=== PATIENT | female | born 1950 | race Caucasian/White ===

== ENCOUNTER → 2019-01-30 | Outpatient (CLI) | payer MEDICARE ==
[~2019-01-30] MED LIST: ALLO300T80 PO; CYCL-259 PO; HYDR-3241 PO; LIDOCAINE-MPF 1%, 5ML ONE; OMNIPAQUE 350 MG/ML, 100ML BOTTLE ONE; ONDA4TAB13 SL; ONDANSETRON PO
== END | disposition home or self-care (01) ==
LOC: RAD 11:32
PROVIDERS: ATTEND Otolaryngology
DX: E04.1 Nontoxic single thyroid nodule (principal); Z85.828 Personal history of other malignant neoplasm of skin
CPT/HCPCS: 10005; 10006; 36415; 70491; 82565; 88173; Q9967

== ENCOUNTER 2019-03-03 12:57 | Outpatient (CLI) | payer MEDICARE | END 2019-03-03 23:59 | disposition home or self-care (01) | LOC: PETCFH 12:57 | PROVIDERS: ATTEND Otolaryngology | DX: C78.02 Secondary malignant neoplasm of left lung (principal); C78.1 Secondary malignant neoplasm of mediastinum; C78.2 Secondary malignant neoplasm of pleura; C79.89 Secondary malignant neoplasm of other specified sites; D37.030 Neoplasm of uncertain behavior of the parotid salivary glands; E07.89 Other specified disorders of thyroid; R91.8 Other nonspecific abnormal finding of lung field; J90 Pleural effusion, not elsewhere classified; R59.0 Localized enlarged lymph nodes | CPT/HCPCS: 78815; A9552 ==

== ENCOUNTER 2021-03-14 15:48 | Inpatient (IN) | payer MEDICARE ==
[~2021-03-14] VITALS: Ht 162.6 cm; Wt 60.8 kg
[~2021-03-14 15:48] MED LIST changes: -CYCL-259 PO; +CYCL10TA2 PO; -LIDOCAINE-MPF 1%, 5ML ONE; -OMNIPAQUE 350 MG/ML, 100ML BOTTLE ONE
--- NOTE | 2021-03-14 16:11 | NUR ---
PT SENT FROM PCP TO GET PLATELETS TESTED. HX OF LOW PLATELETS. BRUSING NOTED BILATERAL UE.
[2021-03-14] MEDS ORDERED: PRED1TAB19 PO (16:15)
[2021-03-14] MEDS ORDERED: SODIUM CHLORIDE FLUSH 10ML SYR IVF ONE (17:00)
--- NOTE | 2021-03-14 17:03 | NUR ---
REPORT TO CLINT MURPHY TO ASSUME PRIMARY CARE OF PT.
--- NOTE | 2021-03-14 17:21 | NUR ---
recieved report from navin robert.
[2021-03-14] MEDS ORDERED: methylPREDNISolone SOD SUCC 125 MG/2 ML IVPush ONE (17:30)
[2021-03-14 17:35] LABS: BASOPHILS % (AUTO) 1 % (0-1); EOSINOPHILS % (AUTO) 0 % (1-7); LYMPHOCYTES % (AUTO) 10 % (22-44); MEAN CORPUSCULAR HGB CONC 34.1 g/dL (32.4-35.8); MEAN PLATELET VOLUME 10.4 fL (7.4-10.4); MONOCYTES % (AUTO) 9 % (2-9); NEUTROPHILS % (AUTO) 80 % (42-75); RED BLOOD COUNT 2.97 x10^6/uL (3.82-5.3); RED CELL DISTRIBUTION WIDTH 19.4 % (9.6-15.2)
[2021-03-14 17:43] LABS: ALBUMIN 2.3 g/dL (3.4-5.0); ANION GAP 4 mmol/L (5-15); CALCIUM 9.5 mg/dL (8.5-10.1); CHLORIDE 105 mmol/L (98-107); CREATININE 1.11 mg/dL (0.55-1.02)
[2021-03-14 17:49] LABS: INTERNATIONAL NORMALIZED RATIO 1.04 (0.93-1.1); PROTHROMBIN TIME 11.1 Seconds (9.6-11.5)
[2021-03-14] MEDS ORDERED: methylPREDNISolone SOD SUCC 125 MG/2 ML ONE (17:49)
[2021-03-14 18:01] LABS: PLATELET COUNT 8 x10^3/uL (130-400)
--- NOTE | 2021-03-14 18:02 | NUR ---
PT DAUGHTER GAVE PT A SALAD WITH RANCH. SPOKE TO CEM AND ROMY VALDOVINOS STATED THAT WAS OKAY. PT RESTING IN BED NADN. VSS. WCTM
[2021-03-14 18:05] LABS: <PLATELET ESTIMATE> DECREASED; <PLT MORPHOLOGY> QNS FOR PLT MORPH; ANISOCYTOSIS 1+; MICROCYTOSIS 1+
[2021-03-14] MEDS ORDERED: SODIUM CHLORIDE FLUSH 10ML SYR IVF PRN (19:00)
--- NOTE | 2021-03-14 19:27 | NUR ---
Vee sharpe in [facility] - 03/14/21 at 1928 by O[place] GAVE REPORT TO LATA JARAMILLO
[2021-03-14] MEDS ORDERED: ONDANSETRON 2MG/ML, 2ML IVPush PRN (19:30)
[2021-03-14] MEDS ORDERED: LABETALOL 5MG/ML, 20ML IVPush PRN (19:30)
[2021-03-14] MEDS ORDERED: MELATONIN 5 MG TABLET PO PRN (19:30)
[2021-03-14] MEDS ORDERED: ACETAMINOPHEN 325 MG TABLET PO PRN (19:30)
[2021-03-14] MEDS ORDERED: IMMUNE GLOB (GAMUNEX) 10GM/100ML IVPB ONE (19:30)
[2021-03-14] MEDS ORDERED: OXYcodone IR 5MG TABLET PO PRN (19:30)
[2021-03-14 19:31] VITALS: BP 92/59
--- NOTE | 2021-03-14 19:33 | NUR ---
GAVE REPORT TO LATA JARAMILLO
[2021-03-14 19:47] VITALS: BP 96/51
--- NOTE | 2021-03-14 19:51 | NUR ---
PT PLATELET INFUSION STARTED 15 MINUTES AGO. PT TOLERATING QWELL, NO REACTIONS NOTED. PT STARTED AT 60ML/HR AND INCREASED TO 150ML/HR NADN. VSS. JOCY AWAITING TO SEND TO ONCOLOGY FLOOR
[2021-03-14 20:18] VITALS: BP 91/48
[2021-03-14 20:22] VITALS: BP 91/48
[2021-03-14] MEDS ORDERED: IMMUN GLOB IV ONE (21:00)
[2021-03-14 21:52] VITALS: BP 87/51
[2021-03-14 21:55] VITALS: BP 93/57
[2021-03-14] MEDS: methylPREDNISolone SOD SUCC 40 MG/ML IVPush SCH (22:26)
[2021-03-14] MEDS: FAMOTIDINE 20 MG TABLET PO SCH (22:26)
[2021-03-15] VITALS (8 sets, daily range): BP systolic 88–108; BP diastolic 48–66
[2021-03-15] MEDS: methylPREDNISolone SOD SUCC 40 MG/ML IVPush SCH ×4 (01:51→20:22)
[2021-03-15 05:05] LABS: BASOPHILS % (AUTO) 0 % (0-1); EOSINOPHILS % (AUTO) 0 % (1-7); LYMPHOCYTES % (AUTO) 8 % (22-44); MEAN CORPUSCULAR HEMOGLOBIN 30.1 pg (27.0-34.8); MEAN CORPUSCULAR HGB CONC 34.1 g/dL (32.4-35.8); MEAN PLATELET VOLUME 10.4 fL (7.4-10.4); MONOCYTES % (AUTO) 9 % (2-9); NEUTROPHILS % (AUTO) 83 % (42-75); RED BLOOD COUNT 2.62 x10^6/uL (3.82-5.3)
[2021-03-15 05:10] LABS: ANION GAP 6 mmol/L (5-15); CALCIUM 8.6 mg/dL (8.5-10.1); CHLORIDE 105 mmol/L (98-107); CREATININE 1.02 mg/dL (0.55-1.02)
[2021-03-15 05:28] LABS: PLATELET COUNT 4 x10^3/uL (130-400)
[2021-03-15] MEDS: FAMOTIDINE 20 MG TABLET PO SCH (08:05)
[2021-03-15] MEDS ORDERED: FAMOTIDINE 20 MG/2 ML IVPush ONE (15:00)
[2021-03-15] MEDS ORDERED: DIPHENHYDRAMINE 50 MG/ML, 1ML IVPush ONE (15:00)
[2021-03-15] MEDS ORDERED: DEXAMETHASONE 10 MG in SODIUM CHLORIDE 0.9% 50 ML IV ONE (15:00)
[2021-03-15] MEDS ORDERED: ACETAMINOPHEN 325 MG TABLET PO ONE (15:00)
[2021-03-15] MEDS ORDERED: SODIUM CHLORIDE 0.9% IV ONE (15:30)
[2021-03-15] MEDS ORDERED: RITUXIMAB IV ONE (15:30)
[2021-03-15 16:45] LABS: EOSINOPHILS % (AUTO) 0 % (1-7); RED BLOOD COUNT 2.98 x10^6/uL (3.82-5.3); RED CELL DISTRIBUTION WIDTH 19.5 % (9.6-15.2)
[2021-03-15 16:47] LABS: BASOPHILS % (AUTO) 0 % (0-1); LYMPHOCYTES % (AUTO) 5 % (22-44); MEAN CORPUSCULAR HEMOGLOBIN 30.2 pg (27.0-34.8); MEAN CORPUSCULAR HGB CONC 33.7 g/dL (32.4-35.8); MEAN PLATELET VOLUME 7.7 fL (7.4-10.4); MONOCYTES % (AUTO) 7 % (2-9); NEUTROPHILS % (AUTO) 87 % (42-75)
[2021-03-15 17:08] LABS: PLATELET COUNT 35 x10^3/uL (130-400)
[2021-03-16] VITALS (8 sets, daily range): BP systolic 96–130; BP diastolic 59–72
[2021-03-16] MEDS: methylPREDNISolone SOD SUCC 40 MG/ML IVPush SCH ×4 (02:17→20:24)
[2021-03-16 05:00] LABS: MEAN CORPUSCULAR HEMOGLOBIN 30.6 pg (27.0-34.8); MEAN CORPUSCULAR HGB CONC 34.1 g/dL (32.4-35.8); MEAN PLATELET VOLUME 9.7 fL (7.4-10.4); RED BLOOD COUNT 2.33 x10^6/uL (3.82-5.3); RED CELL DISTRIBUTION WIDTH 19.7 % (9.6-15.2)
[2021-03-16 05:05] LABS: CHLORIDE 111 mmol/L (98-107)
[2021-03-16 05:07] LABS: PLATELET COUNT 3 x10^3/uL (130-400)
[2021-03-16 05:18] LABS: ALANINE AMINOTRANSFERASE 19 U/L (12-78); ALKALINE PHOSPHATASE 86 U/L (45-117); BILIRUBIN,TOTAL 1.1 mg/dL (0.2-1.0); CREATININE 0.96 mg/dL (0.55-1.02); TOTAL PROTEIN 7.1 g/dL (6.4-8.2)
[2021-03-16 05:21] LABS: ALBUMIN 1.7 g/dL (3.4-5.0); ANION GAP 6 mmol/L (5-15); CALCIUM 8.7 mg/dL (8.5-10.1)
[2021-03-16 06:42] LABS: ANISOCYTOSIS 1+; LYMPH#(MANUAL) 0.32 x10^3/uL (1-3.4); LYMPHS% (MANUAL) 4 % (22-44); MONOS#(MANUAL) 0.16 x10^3/uL (0.3-2.7); MONOS% (MANUAL) 2 % (2-9); SEG#(MANUAL) 7.61 x10^3/uL (1.8-6.8); SEGS% (MANUAL) 94 % (42-75)
[2021-03-16 06:43] LABS: POLYCHROMASIA 1+
[2021-03-16 06:44] LABS: <PLATELET ESTIMATE> DECREASED; <PLT MORPHOLOGY> QNS FOR PLT MORPH
[2021-03-16] MEDS ORDERED: IMMUNE GLOB (GAMUNEX) 10GM/100ML IVPB ONE (08:30)
[2021-03-16] MEDS ORDERED: FAMOTIDINE 20 MG TABLET PO SCH (09:00)
[2021-03-16] MEDS ORDERED: IMMUNE GLOBULIN IV ONE (10:00)
[2021-03-17] MEDS: methylPREDNISolone SOD SUCC 40 MG/ML IVPush SCH ×4 (01:40→19:37)
[2021-03-17 01:43] VITALS: BP 103/63
[2021-03-17 07:51] VITALS: BP 110/69
[2021-03-17 08:26] LABS: BASOPHILS % (AUTO) 0 % (0-1); EOSINOPHILS % (AUTO) 0 % (1-7); LYMPHOCYTES % (AUTO) 4 % (22-44); MEAN CORPUSCULAR HEMOGLOBIN 30.3 pg (27.0-34.8); MEAN CORPUSCULAR HGB CONC 33.4 g/dL (32.4-35.8); MEAN PLATELET VOLUME 10.6 fL (7.4-10.4); MONOCYTES % (AUTO) 7 % (2-9); NEUTROPHILS % (AUTO) 90 % (42-75); RED BLOOD COUNT 2.75 x10^6/uL (3.82-5.3); RED CELL DISTRIBUTION WIDTH 19.9 % (9.6-15.2)
[2021-03-17 09:03] LABS: PLATELET COUNT 25 x10^3/uL (130-400)
[2021-03-17 12:35] VITALS: BP 111/64
[2021-03-17 19:05] VITALS: BP 119/73
[2021-03-18] VITALS (7 sets, daily range): BP systolic 103–118; BP diastolic 63–68
[2021-03-18] MEDS: methylPREDNISolone SOD SUCC 40 MG/ML IVPush SCH ×2 (01:43→07:32)
[2021-03-18 06:17] LABS: BASOPHILS % (AUTO) 0 % (0-1); EOSINOPHILS % (AUTO) 0 % (1-7); LYMPHOCYTES % (AUTO) 3 % (22-44); MEAN CORPUSCULAR HEMOGLOBIN 30.6 pg (27.0-34.8); MEAN CORPUSCULAR HGB CONC 33.7 g/dL (32.4-35.8); MEAN PLATELET VOLUME 10.1 fL (7.4-10.4); MONOCYTES % (AUTO) 8 % (2-9); NEUTROPHILS % (AUTO) 89 % (42-75); RED BLOOD COUNT 2.59 x10^6/uL (3.82-5.3); RED CELL DISTRIBUTION WIDTH 20.5 % (9.6-15.2)
[2021-03-18 06:52] LABS: PLATELET COUNT 9 x10^3/uL (130-400)
[2021-03-18 15:38] LABS: BASOPHILS % (AUTO) 0 % (0-1); EOSINOPHILS % (AUTO) 0 % (1-7); LYMPHOCYTES % (AUTO) 3 % (22-44); MEAN CORPUSCULAR HEMOGLOBIN 30.4 pg (27.0-34.8); MEAN CORPUSCULAR HGB CONC 33.5 g/dL (32.4-35.8); MEAN PLATELET VOLUME 9.2 fL (7.4-10.4); MONOCYTES % (AUTO) 8 % (2-9); NEUTROPHILS % (AUTO) 89 % (42-75); RED BLOOD COUNT 2.92 x10^6/uL (3.82-5.3); RED CELL DISTRIBUTION WIDTH 20.7 % (9.6-15.2)
[2021-03-18] MEDS: OMEPRAZOLE 20 MG CAPSULE.DR PO SCH (15:50)
[2021-03-18] MEDS: POLYETHYLENE GLYCOL 17 GM PACKET PO PRN (15:50)
[2021-03-18 16:03] LABS: PLATELET COUNT 43 x10^3/uL (130-400)
[2021-03-18 18:25] LABS: HYPOCHROMIA 1+; MICROCYTOSIS 1+; POLYCHROMASIA 1+
[2021-03-18 18:26] LABS: <PLATELET ESTIMATE> DECREASED; <PLT MORPHOLOGY> NORMAL PLT MORPH
[2021-03-19 03:29] VITALS: BP 104/62
[2021-03-19 04:32] LABS: BASOPHILS % (AUTO) 1 % (0-1); EOSINOPHILS % (AUTO) 0 % (1-7); LYMPHOCYTES % (AUTO) 5 % (22-44); MEAN CORPUSCULAR HEMOGLOBIN 30.5 pg (27.0-34.8); MEAN CORPUSCULAR HGB CONC 33.4 g/dL (32.4-35.8); MEAN PLATELET VOLUME 9.3 fL (7.4-10.4); MONOCYTES % (AUTO) 11 % (2-9); NEUTROPHILS % (AUTO) 83 % (42-75); RED BLOOD COUNT 2.57 x10^6/uL (3.82-5.3); RED CELL DISTRIBUTION WIDTH 21.7 % (9.6-15.2)
[2021-03-19 04:39] LABS: PLATELET COUNT 13 x10^3/uL (130-400)
[2021-03-19 04:40] LABS: ALBUMIN 1.7 g/dL (3.4-5.0); ANION GAP 6 mmol/L (5-15); CALCIUM 9.1 mg/dL (8.5-10.1); CHLORIDE 105 mmol/L (98-107)
[2021-03-19 04:43] LABS: ALANINE AMINOTRANSFERASE 20 U/L (12-78); ALKALINE PHOSPHATASE 80 U/L (45-117); BILIRUBIN,TOTAL 1.5 mg/dL (0.2-1.0); CREATININE 0.81 mg/dL (0.55-1.02); TOTAL PROTEIN 7.4 g/dL (6.4-8.2)
[2021-03-19] MEDS: OMEPRAZOLE 20 MG CAPSULE.DR PO SCH ×2 (05:55→15:37)
[2021-03-19 06:46] VITALS: BP 104/54
[2021-03-19] MEDS ORDERED: PANTOPRAZOLE 40MG TABLET PO SCH (09:00)
[2021-03-19 12:20] VITALS: BP 105/67
[2021-03-19] MEDS: POLYETHYLENE GLYCOL 17 GM PACKET PO PRN (14:26)
[2021-03-19] MEDS ORDERED: DOCUSATE 100 MG CAPSULE PO PRN (15:00)
[2021-03-19 19:25] VITALS: BP 94/59
[2021-03-19] MEDS: SENNOSIDES 8.6 MG TABLET PO SCH (20:46)
[2021-03-20] VITALS (7 sets, daily range): BP systolic 84–106; BP diastolic 50–71
[2021-03-20 05:10] LABS: BASOPHILS % (AUTO) 0 % (0-1); EOSINOPHILS % (AUTO) 0 % (1-7); LYMPHOCYTES % (AUTO) 4 % (22-44); MEAN CORPUSCULAR HEMOGLOBIN 30.6 pg (27.0-34.8); MEAN CORPUSCULAR HGB CONC 33.4 g/dL (32.4-35.8); MEAN PLATELET VOLUME 10.8 fL (7.4-10.4); MONOCYTES % (AUTO) 13 % (2-9); NEUTROPHILS % (AUTO) 82 % (42-75); RED BLOOD COUNT 2.56 x10^6/uL (3.82-5.3); RED CELL DISTRIBUTION WIDTH 21.8 % (9.6-15.2)
[2021-03-20 05:44] LABS: PLATELET COUNT 4 x10^3/uL (130-400)
[2021-03-20 05:46] LABS: <PLATELET ESTIMATE> DECREASED; <PLT MORPHOLOGY> QNS FOR PLT MORPH; ANISOCYTOSIS 1+; POLYCHROMASIA 1+
[2021-03-20] MEDS: OMEPRAZOLE 20 MG CAPSULE.DR PO SCH ×2 (06:05→16:26)
[2021-03-20] MEDS: SENNOSIDES 8.6 MG TABLET PO SCH ×2 (09:11→20:42)
[2021-03-21] VITALS (7 sets, daily range): BP systolic 92–110; BP diastolic 54–70
[2021-03-21 05:02] LABS: BASOPHILS % (AUTO) 0 % (0-1); EOSINOPHILS % (AUTO) 0 % (1-7); LYMPHOCYTES % (AUTO) 5 % (22-44); MEAN CORPUSCULAR HEMOGLOBIN 30.7 pg (27.0-34.8); MEAN CORPUSCULAR HGB CONC 33.5 g/dL (32.4-35.8); MEAN PLATELET VOLUME 10.3 fL (7.4-10.4); MONOCYTES % (AUTO) 13 % (2-9); NEUTROPHILS % (AUTO) 82 % (42-75); RED BLOOD COUNT 2.39 x10^6/uL (3.82-5.3); RED CELL DISTRIBUTION WIDTH 21.9 % (9.6-15.2)
[2021-03-21 05:26] LABS: PLATELET COUNT 3 x10^3/uL (130-400)
[2021-03-21] MEDS: OMEPRAZOLE 20 MG CAPSULE.DR PO SCH ×2 (06:01→16:14)
[2021-03-21] MEDS: SENNOSIDES 8.6 MG TABLET PO SCH ×2 (08:26→19:40)
[2021-03-21] MEDS ORDERED: ROMIPLOSTIM 250 MCG SQ ONE (16:30)
[2021-03-22] VITALS (7 sets, daily range): BP systolic 94–137; BP diastolic 55–68
[2021-03-22] MEDS: OMEPRAZOLE 20 MG CAPSULE.DR PO SCH ×2 (05:04→18:29)
[2021-03-22 05:27] LABS: BASOPHILS % (AUTO) 0 % (0-1); EOSINOPHILS % (AUTO) 0 % (1-7); LYMPHOCYTES % (AUTO) 6 % (22-44); MEAN CORPUSCULAR HEMOGLOBIN 31.2 pg (27.0-34.8); MEAN CORPUSCULAR HGB CONC 33.5 g/dL (32.4-35.8); MEAN PLATELET VOLUME 12.5 fL (7.4-10.4); MONOCYTES % (AUTO) 15 % (2-9); NEUTROPHILS % (AUTO) 78 % (42-75); RED CELL DISTRIBUTION WIDTH 23.3 % (9.6-15.2)
[2021-03-22 05:38] LABS: PLATELET COUNT 2 x10^3/uL (130-400)
[2021-03-22] MEDS ORDERED: ACETAMINOPHEN 325 MG TABLET PO ONE ×3 (06:00→10:00)
[2021-03-22] MEDS ORDERED: DIPHENHYDRAMINE 50 MG/ML, 1ML IVPush ONE ×3 (06:00→10:00)
[2021-03-22] MEDS ORDERED: DEXAMETHASONE 4 MG/ML, 1ML IV ONE ×2 (08:30→10:00)
[2021-03-22] MEDS ORDERED: FAMOTIDINE 20 MG/2 ML IVPush ONE ×2 (08:30→10:00)
[2021-03-22] MEDS ORDERED: SODIUM CHLORIDE 0.9% IV ONE ×2 (09:00→11:00)
[2021-03-22] MEDS ORDERED: RITUXIMAB IV ONE ×2 (09:00→11:00)
[2021-03-22] MEDS: SENNOSIDES 8.6 MG TABLET PO SCH ×2 (11:07→20:44)
[2021-03-22] MEDS ORDERED: IMMUNE GLOB (GAMUNEX) 10GM/100ML IVPB ONE (14:00)
[2021-03-22] MEDS ORDERED: IMMUNE GLOBULIN 60 GM in VIAL 0 EACH IV ONE (14:30)
[2021-03-23] VITALS (9 sets, daily range): BP systolic 98–121; BP diastolic 59–69
[2021-03-23 05:07] LABS: BASOPHILS % (AUTO) 0 % (0-1); EOSINOPHILS % (AUTO) 0 % (1-7); LYMPHOCYTES % (AUTO) 4 % (22-44); MEAN CORPUSCULAR HEMOGLOBIN 31.4 pg (27.0-34.8); MEAN CORPUSCULAR HGB CONC 33.4 g/dL (32.4-35.8); MONOCYTES % (AUTO) 13 % (2-9); NEUTROPHILS % (AUTO) 83 % (42-75); RED BLOOD COUNT 2.18 x10^6/uL (3.82-5.3); RED CELL DISTRIBUTION WIDTH 23.5 % (9.6-15.2)
[2021-03-23 05:14] LABS: PLATELET COUNT 6 x10^3/uL (130-400)
[2021-03-23 05:19] LABS: ANION GAP 6 mmol/L (5-15); CHLORIDE 107 mmol/L (98-107); CREATININE 0.84 mg/dL (0.55-1.02)
[2021-03-23] MEDS: OMEPRAZOLE 20 MG CAPSULE.DR PO SCH ×2 (06:11→16:55)
[2021-03-23] MEDS: SENNOSIDES 8.6 MG TABLET PO SCH ×2 (08:09→21:17)
[2021-03-23] MEDS ORDERED: ACETAMINOPHEN 325 MG TABLET PO ONE (08:30)
[2021-03-23] MEDS ORDERED: DIPHENHYDRAMINE 50 MG/ML, 1ML IVPush ONE (08:30)
[2021-03-23 17:38] LABS: ANA SCREEN NEGATIVE (Negative)
[2021-03-24 01:35] VITALS: BP 104/67
[2021-03-24 05:39] LABS: BASOPHILS % (AUTO) 0 % (0-1); EOSINOPHILS % (AUTO) 0 % (1-7)
[2021-03-24 05:42] LABS: LYMPHOCYTES % (AUTO) 4 % (22-44); MEAN CORPUSCULAR HGB CONC 34.2 g/dL (32.4-35.8); MONOCYTES % (AUTO) 9 % (2-9); NEUTROPHILS % (AUTO) 87 % (42-75); RED BLOOD COUNT 3.22 x10^6/uL (3.82-5.3); RED CELL DISTRIBUTION WIDTH 24.1 % (9.6-15.2)
[2021-03-24 05:44] LABS: CHLORIDE 105 mmol/L (98-107)
[2021-03-24 05:49] LABS: ANION GAP 6 mmol/L (5-15); CALCIUM 9.2 mg/dL (8.5-10.1); CREATININE 0.85 mg/dL (0.55-1.02)
[2021-03-24] MEDS: OMEPRAZOLE 20 MG CAPSULE.DR PO SCH ×2 (05:57→15:52)
[2021-03-24 06:16] LABS: PLATELET COUNT 26 x10^3/uL (130-400)
[2021-03-24 08:12] VITALS: BP 107/67
[2021-03-24] MEDS: SENNOSIDES 8.6 MG TABLET PO SCH ×2 (08:40→21:04)
[2021-03-24 14:00] VITALS: BP 102/67
[2021-03-24 19:19] VITALS: BP 100/63
[2021-03-25] VITALS (8 sets, daily range): BP systolic 80–105; BP diastolic 52–64
[2021-03-25 04:57] LABS: BASOPHILS % (AUTO) 0 % (0-1); EOSINOPHILS % (AUTO) 0 % (1-7); LYMPHOCYTES % (AUTO) 5 % (22-44); MEAN CORPUSCULAR HEMOGLOBIN 31.4 pg (27.0-34.8); MEAN CORPUSCULAR HGB CONC 34.2 g/dL (32.4-35.8); MEAN PLATELET VOLUME 10.5 fL (7.4-10.4); MONOCYTES % (AUTO) 9 % (2-9); NEUTROPHILS % (AUTO) 86 % (42-75); RED BLOOD COUNT 2.85 x10^6/uL (3.82-5.3); RED CELL DISTRIBUTION WIDTH 23.9 % (9.6-15.2)
[2021-03-25 05:52] LABS: PLATELET COUNT 6 x10^3/uL (130-400)
[2021-03-25] MEDS: OMEPRAZOLE 20 MG CAPSULE.DR PO SCH ×2 (05:56→15:34)
[2021-03-25] MEDS: SENNOSIDES 8.6 MG TABLET PO SCH ×2 (07:38→19:58)
[2021-03-26] VITALS (9 sets, daily range): BP systolic 83–109; BP diastolic 53–69
[2021-03-26 05:33] LABS: BASOPHILS % (AUTO) 1 % (0-1); EOSINOPHILS % (AUTO) 0 % (1-7); LYMPHOCYTES % (AUTO) 4 % (22-44); MEAN CORPUSCULAR HEMOGLOBIN 31.3 pg (27.0-34.8); MEAN CORPUSCULAR HGB CONC 34.3 g/dL (32.4-35.8); MEAN PLATELET VOLUME 10.5 fL (7.4-10.4); MONOCYTES % (AUTO) 7 % (2-9); NEUTROPHILS % (AUTO) 88 % (42-75); RED BLOOD COUNT 2.83 x10^6/uL (3.82-5.3); RED CELL DISTRIBUTION WIDTH 23.7 % (9.6-15.2)
[2021-03-26 05:45] LABS: PLATELET COUNT 5 x10^3/uL (130-400)
[2021-03-26] MEDS: OMEPRAZOLE 20 MG CAPSULE.DR PO SCH ×2 (06:07→16:26)
[2021-03-26] MEDS: SENNOSIDES 8.6 MG TABLET PO SCH ×2 (08:15→19:53)
[2021-03-26] MEDS: DIPHENHYDRAMINE 50 MG/ML, 1ML IVPush PRN ×2 (12:02→21:20)
[2021-03-26] MEDS ORDERED: SODIUM CHLORIDE NASAL SPRAY 45ML BOTTLE NAS PRN ×2 (15:30→18:30)
[2021-03-26] MEDS: OXYMETAZOLINE NASAL SPRAY 0.05%, 15ML NAS PRN (16:31)
[2021-03-26] MEDS: ACETAMINOPHEN 325 MG TABLET PO PRN (21:20)
[2021-03-27] VITALS (8 sets, daily range): BP systolic 92–119; BP diastolic 54–68
[2021-03-27 05:29] LABS: BASOPHILS % (AUTO) 0 % (0-1); EOSINOPHILS % (AUTO) 0 % (1-7); LYMPHOCYTES % (AUTO) 3 % (22-44); MEAN CORPUSCULAR HEMOGLOBIN 31.4 pg (27.0-34.8); MEAN CORPUSCULAR HGB CONC 34.2 g/dL (32.4-35.8); MEAN PLATELET VOLUME 10.4 fL (7.4-10.4); MONOCYTES % (AUTO) 6 % (2-9); NEUTROPHILS % (AUTO) 90 % (42-75); RED BLOOD COUNT 2.62 x10^6/uL (3.82-5.3)
[2021-03-27 05:32] LABS: PLATELET COUNT 6 x10^3/uL (130-400)
[2021-03-27 05:37] LABS: ANION GAP 5 mmol/L (5-15); CALCIUM 9.6 mg/dL (8.5-10.1); CHLORIDE 107 mmol/L (98-107)
[2021-03-27 05:39] LABS: CREATININE 0.85 mg/dL (0.55-1.02)
[2021-03-27] MEDS: OMEPRAZOLE 20 MG CAPSULE.DR PO SCH ×2 (05:57→16:28)
[2021-03-27] MEDS: OXYMETAZOLINE NASAL SPRAY 0.05%, 15ML NAS PRN (07:28)
[2021-03-27] MEDS: SENNOSIDES 8.6 MG TABLET PO SCH ×2 (08:03→20:05)
[2021-03-27] MEDS: DIPHENHYDRAMINE 50 MG/ML, 1ML IVPush PRN (08:36)
[2021-03-28] VITALS (7 sets, daily range): BP systolic 90–117; BP diastolic 55–76
[2021-03-28 04:42] LABS: BASOPHILS % (AUTO) 0 % (0-1); EOSINOPHILS % (AUTO) 0 % (1-7); LYMPHOCYTES % (AUTO) 5 % (22-44); MEAN CORPUSCULAR HEMOGLOBIN 31.2 pg (27.0-34.8); MEAN CORPUSCULAR HGB CONC 33.6 g/dL (32.4-35.8); MEAN PLATELET VOLUME 9.2 fL (7.4-10.4); MONOCYTES % (AUTO) 5 % (2-9); NEUTROPHILS % (AUTO) 90 % (42-75); RED CELL DISTRIBUTION WIDTH 24.2 % (9.6-15.2)
[2021-03-28 04:43] LABS: PLATELET COUNT 3 x10^3/uL (130-400)
[2021-03-28 04:54] LABS: ALANINE AMINOTRANSFERASE 20 U/L (12-78); ANION GAP 4 mmol/L (5-15); CALCIUM 9.9 mg/dL (8.5-10.1); CHLORIDE 105 mmol/L (98-107)
[2021-03-28 04:56] LABS: ALKALINE PHOSPHATASE 87 U/L (45-117); BILIRUBIN,TOTAL 1.9 mg/dL (0.2-1.0); TOTAL PROTEIN 7.1 g/dL (6.4-8.2)
[2021-03-28] MEDS: OMEPRAZOLE 20 MG CAPSULE.DR PO SCH ×2 (05:52→16:30)
[2021-03-28] MEDS: OXYMETAZOLINE NASAL SPRAY 0.05%, 15ML NAS PRN (08:12)
[2021-03-28] MEDS: SENNOSIDES 8.6 MG TABLET PO SCH ×2 (08:13→20:28)
[2021-03-28] MEDS ORDERED: ROMIPLOSTIM 250 MCG SQ ONE (10:00)
[2021-03-28] MEDS: DIPHENHYDRAMINE 50 MG/ML, 1ML IVPush PRN (10:53)
[2021-03-28] MEDS: ACETAMINOPHEN 325 MG TABLET PO PRN (10:53)
[2021-03-28] MEDS ORDERED: ACETAMINOPHEN 325 MG TABLET PO ONE (14:30)
[2021-03-28] MEDS ORDERED: SODIUM CHLORIDE 0.9% 100 ML IV SCH (14:30)
[2021-03-28] MEDS ORDERED: DIPHENHYDRAMINE 50 MG/ML, 1ML IVPush ONE (14:30)
[2021-03-28] MEDS ORDERED: FAMOTIDINE 20 MG/2 ML IVPush ONE (14:30)
[2021-03-28] MEDS ORDERED: RITUXIMAB IV ONE (15:00)
[2021-03-28] MEDS ORDERED: SODIUM CHLORIDE 0.9% IV ONE ×3 (15:00→22:30)
[2021-03-28] MEDS ORDERED: DEXAMETHASONE IV ONE (19:30)
[2021-03-28] MEDS ORDERED: GRANISETRON IV ONE (19:30)
[2021-03-28] MEDS: SODIUM CHLORIDE 0.9% IV SCH (22:06)
[2021-03-28] MEDS: ETOPOSIDE IV SCH (22:06)
[2021-03-28] MEDS ORDERED: CYCLOPHOSPHAMIDE IV ONE (22:30)
[2021-03-29] VITALS (8 sets, daily range): BP systolic 89–99; BP diastolic 53–65
[2021-03-29 04:35] LABS: BASOPHILS % (AUTO) 1 % (0-1); EOSINOPHILS % (AUTO) 0 % (1-7); LYMPHOCYTES % (AUTO) 4 % (22-44); MEAN CORPUSCULAR HEMOGLOBIN 31.8 pg (27.0-34.8); MEAN CORPUSCULAR HGB CONC 33.9 g/dL (32.4-35.8); MEAN PLATELET VOLUME 13.4 fL (7.4-10.4); MONOCYTES % (AUTO) 5 % (2-9); NEUTROPHILS % (AUTO) 91 % (42-75); RED BLOOD COUNT 2.24 x10^6/uL (3.82-5.3); RED CELL DISTRIBUTION WIDTH 23.6 % (9.6-15.2)
[2021-03-29 04:41] LABS: ANION GAP 6 mmol/L (5-15); CALCIUM 9.4 mg/dL (8.5-10.1); CHLORIDE 106 mmol/L (98-107); CREATININE 0.83 mg/dL (0.55-1.02)
[2021-03-29 04:48] LABS: PLATELET COUNT 1 x10^3/uL (130-400)
[2021-03-29] MEDS: OMEPRAZOLE 20 MG CAPSULE.DR PO SCH ×2 (05:32→16:43)
[2021-03-29] MEDS: SENNOSIDES 8.6 MG TABLET PO SCH ×2 (08:04→20:44)
[2021-03-29] MEDS: DIPHENHYDRAMINE 50 MG/ML, 1ML IVPush PRN (10:31)
[2021-03-29] MEDS: ACETAMINOPHEN 325 MG TABLET PO PRN (10:31)
[2021-03-29] MEDS ORDERED: ONDANSETRON 2MG/ML, 2ML IV ONE (20:00)
[2021-03-29] MEDS: SODIUM CHLORIDE 0.9% IV SCH (20:36)
[2021-03-29] MEDS: ETOPOSIDE IV SCH (20:36)
[2021-03-30] VITALS (11 sets, daily range): BP systolic 91–121; BP diastolic 56–75
[2021-03-30] MEDS: OMEPRAZOLE 20 MG CAPSULE.DR PO SCH ×2 (06:04→17:19)
[2021-03-30 06:05] LABS: BASOPHILS % (AUTO) 0 % (0-1); EOSINOPHILS % (AUTO) 0 % (1-7); LYMPHOCYTES % (AUTO) 3 % (22-44); MEAN CORPUSCULAR HEMOGLOBIN 31.6 pg (27.0-34.8); MEAN CORPUSCULAR HGB CONC 33.6 g/dL (32.4-35.8); MEAN PLATELET VOLUME 11.8 fL (7.4-10.4); MONOCYTES % (AUTO) 3 % (2-9); NEUTROPHILS % (AUTO) 94 % (42-75); RED BLOOD COUNT 2.07 x10^6/uL (3.82-5.3); RED CELL DISTRIBUTION WIDTH 23.7 % (9.6-15.2)
[2021-03-30 06:13] LABS: CHLORIDE 107 mmol/L (98-107)
[2021-03-30 06:21] LABS: ANION GAP 4 mmol/L (5-15); CALCIUM 9.3 mg/dL (8.5-10.1); CREATININE 0.67 mg/dL (0.55-1.02)
[2021-03-30 06:33] LABS: PLATELET COUNT 2 x10^3/uL (130-400)
[2021-03-30] MEDS: SENNOSIDES 8.6 MG TABLET PO SCH ×2 (09:00→20:38)
[2021-03-30] MEDS: DIPHENHYDRAMINE 50 MG/ML, 1ML IVPush PRN (11:18)
[2021-03-30] MEDS: ACETAMINOPHEN 325 MG TABLET PO PRN (11:18)
[2021-03-31] VITALS (10 sets, daily range): BP systolic 95–113; BP diastolic 59–69
[2021-03-31] MEDS ORDERED: DIPHENHYDRAMINE 25 MG CAPSULE PO ONE (02:00)
[2021-03-31] MEDS ORDERED: ACETAMINOPHEN 325 MG TABLET PO ONE (02:00)
[2021-03-31] MEDS ORDERED: IMMUN GLOB IV ONE (02:00)
[2021-03-31] MEDS: OMEPRAZOLE 20 MG CAPSULE.DR PO SCH ×2 (05:54→16:11)
[2021-03-31] MEDS: POLYETHYLENE GLYCOL 17 GM PACKET PO PRN (09:00)
[2021-03-31] MEDS: SENNOSIDES 8.6 MG TABLET PO SCH ×2 (09:00→20:00)
[2021-03-31 09:28] LABS: BASOPHILS % (AUTO) 0 % (0-1); EOSINOPHILS % (AUTO) 0 % (1-7); LYMPHOCYTES % (AUTO) 4 % (22-44); MEAN PLATELET VOLUME 9.2 fL (7.4-10.4); MONOCYTES % (AUTO) 1 % (2-9); NEUTROPHILS % (AUTO) 96 % (42-75); RED BLOOD COUNT 2.14 x10^6/uL (3.82-5.3); RED CELL DISTRIBUTION WIDTH 22.8 % (9.6-15.2)
[2021-03-31 09:31] LABS: ANION GAP 4 mmol/L (5-15); CALCIUM 8.6 mg/dL (8.5-10.1); CHLORIDE 104 mmol/L (98-107); CREATININE 0.71 mg/dL (0.55-1.02)
[2021-03-31 09:58] LABS: PLATELET COUNT 3 x10^3/uL (130-400)
[2021-03-31] MEDS: DIPHENHYDRAMINE 50 MG/ML, 1ML IVPush PRN (11:55)
[2021-03-31] MEDS: ACETAMINOPHEN 325 MG TABLET PO PRN (11:55)
[2021-04-01 00:03] VITALS: BP 105/69
[2021-04-01] MEDS: OMEPRAZOLE 20 MG CAPSULE.DR PO SCH ×2 (06:13→15:54)
[2021-04-01 06:35] VITALS: BP 114/68
[2021-04-01 07:19] LABS: BASOPHILS % (AUTO) 0 % (0-1); EOSINOPHILS % (AUTO) 0 % (1-7); LYMPHOCYTES % (AUTO) 3 % (22-44); MEAN CORPUSCULAR HEMOGLOBIN 31.4 pg (27.0-34.8); MEAN PLATELET VOLUME 8.3 fL (7.4-10.4); MONOCYTES % (AUTO) 1 % (2-9); NEUTROPHILS % (AUTO) 96 % (42-75); RED BLOOD COUNT 2.55 x10^6/uL (3.82-5.3); RED CELL DISTRIBUTION WIDTH 20.3 % (9.6-15.2)
[2021-04-01 07:22] LABS: CALCIUM 9.2 mg/dL (8.5-10.1); CHLORIDE 106 mmol/L (98-107)
[2021-04-01 07:25] LABS: CREATININE 0.61 mg/dL (0.55-1.02)
[2021-04-01 07:35] LABS: ANION GAP 3 mmol/L (5-15)
[2021-04-01 08:31] LABS: PLATELET COUNT 21 x10^3/uL (130-400)
[2021-04-01] MEDS: SENNOSIDES 8.6 MG TABLET PO SCH ×2 (08:35→20:49)
[2021-04-01 13:16] VITALS: BP 100/59
[2021-04-01 19:33] VITALS: BP 111/67
[2021-04-02 02:20] VITALS: BP 137/79
[2021-04-02] MEDS: OMEPRAZOLE 20 MG CAPSULE.DR PO SCH ×2 (05:37→16:07)
[2021-04-02 06:08] LABS: CALCIUM 8.3 mg/dL (8.5-10.1); CHLORIDE 102 mmol/L (98-107)
[2021-04-02 06:09] LABS: ANION GAP 3 mmol/L (5-15); CREATININE 0.53 mg/dL (0.55-1.02)
[2021-04-02 06:16] LABS: BASOPHILS % (AUTO) 0 % (0-1); EOSINOPHILS % (AUTO) 0 % (1-7); LYMPHOCYTES % (AUTO) 7 % (22-44); MEAN CORPUSCULAR HEMOGLOBIN 31.5 pg (27.0-34.8); MEAN CORPUSCULAR HGB CONC 34.6 g/dL (32.4-35.8); MEAN PLATELET VOLUME 8.6 fL (7.4-10.4); MONOCYTES % (AUTO) 0 % (2-9); NEUTROPHILS % (AUTO) 93 % (42-75); RED BLOOD COUNT 2.24 x10^6/uL (3.82-5.3)
[2021-04-02 06:19] LABS: PLATELET COUNT 11 x10^3/uL (130-400); RED CELL DISTRIBUTION WIDTH 20.1 % (9.6-15.2)
[2021-04-02 08:20] VITALS: BP 99/61
[2021-04-02] MEDS: SENNOSIDES 8.6 MG TABLET PO SCH ×2 (09:28→20:38)
[2021-04-02 14:31] VITALS: BP 89/56
[2021-04-02 18:56] VITALS: BP 113/73
[2021-04-03] VITALS (10 sets, daily range): BP systolic 94–115; BP diastolic 58–70
[2021-04-03] MEDS: OMEPRAZOLE 20 MG CAPSULE.DR PO SCH ×2 (05:12→16:34)
[2021-04-03 07:42] LABS: BASOPHILS % (AUTO) 1 % (0-1); EOSINOPHILS % (AUTO) 0 % (1-7); LYMPHOCYTES % (AUTO) 9 % (22-44); MEAN CORPUSCULAR HEMOGLOBIN 31.3 pg (27.0-34.8); MEAN PLATELET VOLUME 9.5 fL (7.4-10.4); MONOCYTES % (AUTO) 0 % (2-9); NEUTROPHILS % (AUTO) 89 % (42-75); RED BLOOD COUNT 2.19 x10^6/uL (3.82-5.3); RED CELL DISTRIBUTION WIDTH 19.7 % (9.6-15.2)
[2021-04-03 07:50] LABS: ALANINE AMINOTRANSFERASE 17 U/L (12-78); ALBUMIN 1.8 g/dL (3.4-5.0); CALCIUM 7.6 mg/dL (8.5-10.1); CREATININE 0.59 mg/dL (0.55-1.02)
[2021-04-03 07:53] LABS: ALKALINE PHOSPHATASE 68 U/L (45-117); TOTAL PROTEIN 6.6 g/dL (6.4-8.2)
[2021-04-03] MEDS: SENNOSIDES 8.6 MG TABLET PO SCH ×2 (08:00→20:20)
[2021-04-03 08:07] LABS: CHLORIDE 102 mmol/L (98-107)
[2021-04-03 08:08] LABS: ANION GAP 3 mmol/L (5-15)
[2021-04-03 08:12] LABS: PLATELET COUNT 5 x10^3/uL (130-400)
[2021-04-03] MEDS: DIPHENHYDRAMINE 50 MG/ML, 1ML IVPush PRN (12:01)
[2021-04-03] MEDS: ACETAMINOPHEN 325 MG TABLET PO PRN (12:01)
[2021-04-04 02:01] VITALS: BP 111/73
[2021-04-04] MEDS: OMEPRAZOLE 20 MG CAPSULE.DR PO SCH ×2 (05:43→15:42)
[2021-04-04 06:22] LABS: MEAN CORPUSCULAR HEMOGLOBIN 31.4 pg (27.0-34.8); MEAN CORPUSCULAR HGB CONC 34.5 g/dL (32.4-35.8); MEAN PLATELET VOLUME 7.6 fL (7.4-10.4); RED BLOOD COUNT 2.55 x10^6/uL (3.82-5.3); RED CELL DISTRIBUTION WIDTH 18.7 % (9.6-15.2)
[2021-04-04 06:26] LABS: ALBUMIN 1.7 g/dL (3.4-5.0); ANION GAP 5 mmol/L (5-15); CALCIUM 8.1 mg/dL (8.5-10.1); CHLORIDE 101 mmol/L (98-107)
[2021-04-04 06:29] LABS: ALANINE AMINOTRANSFERASE 19 U/L (12-78); ALKALINE PHOSPHATASE 67 U/L (45-117); BILIRUBIN,TOTAL 0.8 mg/dL (0.2-1.0); CREATININE 0.63 mg/dL (0.55-1.02); TOTAL PROTEIN 6.4 g/dL (6.4-8.2)
[2021-04-04 06:32] LABS: PLATELET COUNT 18 x10^3/uL (130-400)
[2021-04-04 06:36] VITALS: BP 105/66
[2021-04-04 06:50] LABS: EOS#(MANUAL) 0.02 x10^3/uL (0.0-0.4); EOS% (MANUAL) 1 % (1-7); LYMPH#(MANUAL) 0.26 x10^3/uL (1-3.4); LYMPHS% (MANUAL) 17 % (22-44); MONOS#(MANUAL) 0.02 x10^3/uL (0.3-2.7); MONOS% (MANUAL) 1 % (2-9); SEG#(MANUAL) 1.22 x10^3/uL (1.8-6.8); SEGS% (MANUAL) 81 % (42-75)
[2021-04-04 06:51] LABS: <PLATELET ESTIMATE> DECREASED; <PLT MORPHOLOGY> NORMAL PLT MORPH; ANISOCYTOSIS 1+; BASOPHILLIC STIPPLING 1+
[2021-04-04] MEDS: SENNOSIDES 8.6 MG TABLET PO SCH ×2 (08:47→20:02)
[2021-04-04 12:16] VITALS: BP 111/65
[2021-04-04 18:57] VITALS: BP 113/76
[2021-04-05] VITALS (9 sets, daily range): BP systolic 93–122; BP diastolic 60–71
[2021-04-05] MEDS: OMEPRAZOLE 20 MG CAPSULE.DR PO SCH ×2 (06:09→17:32)
[2021-04-05 06:23] LABS: MEAN CORPUSCULAR HEMOGLOBIN 31.1 pg (27.0-34.8); MEAN CORPUSCULAR HGB CONC 34.6 g/dL (32.4-35.8); MEAN PLATELET VOLUME 8.8 fL (7.4-10.4); RED BLOOD COUNT 2.16 x10^6/uL (3.82-5.3); RED CELL DISTRIBUTION WIDTH 17.8 % (9.6-15.2)
[2021-04-05 06:27] LABS: ANION GAP 3 mmol/L (5-15); CALCIUM 7.8 mg/dL (8.5-10.1); CHLORIDE 101 mmol/L (98-107); CREATININE 0.56 mg/dL (0.55-1.02)
[2021-04-05 06:36] LABS: PLATELET COUNT 6 x10^3/uL (130-400)
[2021-04-05 07:29] LABS: SEG#(MANUAL) 0.53 x10^3/uL (1.8-6.8); SEGS% (MANUAL) 59 % (42-75)
[2021-04-05 07:30] LABS: EOS#(MANUAL) 0.01 x10^3/uL (0.0-0.4); EOS% (MANUAL) 1 % (1-7); LYMPH#(MANUAL) 0.34 x10^3/uL (1-3.4); LYMPHS% (MANUAL) 38 % (22-44); MONOS#(MANUAL) 0.02 x10^3/uL (0.3-2.7); MONOS% (MANUAL) 2 % (2-9)
[2021-04-05 07:31] LABS: <PLATELET ESTIMATE> DECREASED; <PLT MORPHOLOGY> QNS FOR PLT MORPH; ANISOCYTOSIS 1+
[2021-04-05] MEDS: SULFAMETH./TRIMETHOPRIM DS 800MG/160MG TABLET PO SCH (08:50)
[2021-04-05] MEDS: SENNOSIDES 8.6 MG TABLET PO SCH ×2 (08:51→21:00)
[2021-04-05] MEDS: ACYCLOVIR 200 MG CAPSULE PO SCH ×2 (08:51→21:20)
[2021-04-05] MEDS: TBO-FILGRASTIM 480 MCG/0.8 ML SQ SCH (08:52)
[2021-04-05] MEDS: DIPHENHYDRAMINE 50 MG/ML, 1ML IVPush PRN (11:01)
[2021-04-05] MEDS: ACETAMINOPHEN 325 MG TABLET PO PRN (11:01)
[2021-04-06 03:33] VITALS: BP 117/66
[2021-04-06] MEDS: OMEPRAZOLE 20 MG CAPSULE.DR PO SCH ×2 (06:00→16:08)
[2021-04-06 06:36] VITALS: BP 113/66
[2021-04-06 06:38] LABS: MEAN CORPUSCULAR HEMOGLOBIN 30.7 pg (27.0-34.8); MEAN CORPUSCULAR HGB CONC 34.6 g/dL (32.4-35.8); MEAN PLATELET VOLUME 8.2 fL (7.4-10.4); RED BLOOD COUNT 3.16 x10^6/uL (3.82-5.3); RED CELL DISTRIBUTION WIDTH 17.8 % (9.6-15.2)
[2021-04-06 06:42] LABS: PLATELET COUNT 16 x10^3/uL (130-400)
[2021-04-06 06:44] LABS: ANION GAP 4 mmol/L (5-15); CHLORIDE 101 mmol/L (98-107); CREATININE 0.73 mg/dL (0.55-1.02)
[2021-04-06 07:58] LABS: BAND#(MANUAL) 0.02 x10^3/uL; BANDS%(MANUAL) 4 % (0-7); LYMPHS% (MANUAL) 16 % (22-44); MONOS#(MANUAL) 0.04 x10^3/uL (0.3-2.7); MONOS% (MANUAL) 7 % (2-9); SEG#(MANUAL) 0.44 x10^3/uL (1.8-6.8); SEGS% (MANUAL) 73 % (42-75)
[2021-04-06 08:00] LABS: ANISOCYTOSIS 1+
[2021-04-06 08:01] LABS: <PLATELET ESTIMATE> DECREASED; <PLT MORPHOLOGY> NORMAL PLT MORPH
[2021-04-06] MEDS: SENNOSIDES 8.6 MG TABLET PO SCH ×2 (09:00→21:48)
[2021-04-06] MEDS: ACYCLOVIR 200 MG CAPSULE PO SCH ×2 (09:11→21:48)
[2021-04-06] MEDS: TBO-FILGRASTIM 480 MCG/0.8 ML SQ SCH (09:13)
[2021-04-06 12:23] VITALS: BP 114/72
[2021-04-06 19:41] VITALS: BP 109/71
[2021-04-07] VITALS (10 sets, daily range): BP systolic 94–124; BP diastolic 50–75
[2021-04-07] MEDS: OMEPRAZOLE 20 MG CAPSULE.DR PO SCH ×2 (06:01→16:45)
[2021-04-07 06:14] LABS: MEAN CORPUSCULAR HEMOGLOBIN 30.3 pg (27.0-34.8); MEAN CORPUSCULAR HGB CONC 34.1 g/dL (32.4-35.8); MEAN PLATELET VOLUME 8.7 fL (7.4-10.4); RED BLOOD COUNT 3.35 x10^6/uL (3.82-5.3); RED CELL DISTRIBUTION WIDTH 18.1 % (9.6-15.2)
[2021-04-07 06:18] LABS: PLATELET COUNT 13 x10^3/uL (130-400)
[2021-04-07 06:24] LABS: ALANINE AMINOTRANSFERASE 23 U/L (12-78); ALBUMIN 2.2 g/dL (3.4-5.0); ANION GAP 3 mmol/L (5-15); CALCIUM 8.4 mg/dL (8.5-10.1); CHLORIDE 101 mmol/L (98-107)
[2021-04-07 06:26] LABS: ALKALINE PHOSPHATASE 88 U/L (45-117); BILIRUBIN,TOTAL 0.9 mg/dL (0.2-1.0); TOTAL PROTEIN 7.1 g/dL (6.4-8.2)
[2021-04-07 06:58] LABS: BAND#(MANUAL) 0.01 x10^3/uL; BANDS%(MANUAL) 1 % (0-7); LYMPHS% (MANUAL) 39 % (22-44); MONOS#(MANUAL) 0.15 x10^3/uL (0.3-2.7); MONOS% (MANUAL) 30 % (2-9); SEG#(MANUAL) 0.15 x10^3/uL (1.8-6.8); SEGS% (MANUAL) 30 % (42-75)
[2021-04-07 07:01] LABS: <PLATELET ESTIMATE> DECREASED; <PLT MORPHOLOGY> NORMAL PLT MORPH; ANISOCYTOSIS 1+
[2021-04-07] MEDS: SENNOSIDES 8.6 MG TABLET PO SCH ×2 (09:00→20:48)
[2021-04-07] MEDS: SULFAMETH./TRIMETHOPRIM DS 800MG/160MG TABLET PO SCH (09:51)
[2021-04-07] MEDS: ACYCLOVIR 200 MG CAPSULE PO SCH ×2 (09:52→20:48)
[2021-04-07] MEDS: TBO-FILGRASTIM 480 MCG/0.8 ML SQ SCH (09:54)
[2021-04-07] MEDS: DIPHENHYDRAMINE 50 MG/ML, 1ML IVPush PRN (16:27)
[2021-04-07] MEDS: ACETAMINOPHEN 325 MG TABLET PO PRN (16:27)
[2021-04-08 00:32] VITALS: BP 110/68
[2021-04-08] MEDS: OMEPRAZOLE 20 MG CAPSULE.DR PO SCH ×2 (05:54→16:46)
[2021-04-08 06:05] LABS: MEAN CORPUSCULAR HEMOGLOBIN 30.6 pg (27.0-34.8); MEAN CORPUSCULAR HGB CONC 34.2 g/dL (32.4-35.8); MEAN PLATELET VOLUME 9.8 fL (7.4-10.4); RED BLOOD COUNT 2.99 x10^6/uL (3.82-5.3); RED CELL DISTRIBUTION WIDTH 18.2 % (9.6-15.2)
[2021-04-08 06:16] LABS: ALANINE AMINOTRANSFERASE 20 U/L (12-78); ALBUMIN 1.9 g/dL (3.4-5.0); ANION GAP 1 mmol/L (5-15); CHLORIDE 104 mmol/L (98-107); CREATININE 0.72 mg/dL (0.55-1.02)
[2021-04-08 06:18] LABS: ALKALINE PHOSPHATASE 82 U/L (45-117); BILIRUBIN,TOTAL 0.8 mg/dL (0.2-1.0); TOTAL PROTEIN 6.1 g/dL (6.4-8.2)
[2021-04-08 06:20] LABS: PLATELET COUNT 25 x10^3/uL (130-400)
[2021-04-08 06:56] LABS: BAND#(MANUAL) 0.03 x10^3/uL; BANDS%(MANUAL) 5 % (0-7); EOS#(MANUAL) 0.01 x10^3/uL (0.0-0.4); EOS% (MANUAL) 1 % (1-7); LYMPH#(MANUAL) 0.16 x10^3/uL (1-3.4); LYMPHS% (MANUAL) 31 % (22-44); SEG#(MANUAL) 0.14 x10^3/uL (1.8-6.8); SEGS% (MANUAL) 27 % (42-75)
[2021-04-08 07:00] LABS: MONOS#(MANUAL) 0.16 x10^3/uL (0.3-2.7); MONOS% (MANUAL) 32 % (2-9); OTHER CELLS # (MANUAL) 0.02 x10^3/uL (0-0); OTHER CELLS % (MANUAL) 4 % (0-0)
[2021-04-08 07:01] LABS: ANISOCYTOSIS 1+
[2021-04-08 07:02] LABS: <PLATELET ESTIMATE> DECREASED; <PLT MORPHOLOGY> NORMAL PLT MORPH
[2021-04-08 07:52] VITALS: BP 108/68
[2021-04-08] MEDS: SENNOSIDES 8.6 MG TABLET PO SCH ×2 (08:34→20:45)
[2021-04-08] MEDS: TBO-FILGRASTIM 480 MCG/0.8 ML SQ SCH (08:36)
[2021-04-08] MEDS: ACYCLOVIR 200 MG CAPSULE PO SCH ×2 (08:36→20:45)
[2021-04-08 13:36] VITALS: BP 103/67
[2021-04-08] MEDS: POLYETHYLENE GLYCOL 17 GM PACKET PO PRN (16:49)
[2021-04-08 20:38] VITALS: BP 109/66
[2021-04-09 00:04] VITALS: BP 119/72
[2021-04-09] MEDS: OMEPRAZOLE 20 MG CAPSULE.DR PO SCH ×2 (06:19→15:55)
[2021-04-09 06:40] VITALS: BP 114/74
[2021-04-09 06:50] LABS: ANION GAP 3 mmol/L (5-15); CHLORIDE 102 mmol/L (98-107)
[2021-04-09 06:53] LABS: ALANINE AMINOTRANSFERASE 22 U/L (12-78); ALKALINE PHOSPHATASE 85 U/L (45-117); BILIRUBIN,TOTAL 0.9 mg/dL (0.2-1.0); CREATININE 0.69 mg/dL (0.55-1.02); TOTAL PROTEIN 6.3 g/dL (6.4-8.2)
[2021-04-09 08:27] LABS: MEAN CORPUSCULAR HEMOGLOBIN 30.9 pg (27.0-34.8); MEAN CORPUSCULAR HGB CONC 34.3 g/dL (32.4-35.8); RED CELL DISTRIBUTION WIDTH 18.1 % (9.6-15.2)
[2021-04-09] MEDS: ACYCLOVIR 200 MG CAPSULE PO SCH ×2 (08:45→20:21)
[2021-04-09] MEDS: SENNOSIDES 8.6 MG TABLET PO SCH ×2 (08:46→20:22)
[2021-04-09 08:49] LABS: PLATELET COUNT 11 x10^3/uL (130-400)
[2021-04-09 08:53] LABS: SEG#(MANUAL) 0.99 x10^3/uL (1.8-6.8); SEGS% (MANUAL) 52 % (42-75)
[2021-04-09 08:54] LABS: BAND#(MANUAL) 0.08 x10^3/uL; BANDS%(MANUAL) 4 % (0-7); LYMPH#(MANUAL) 0.36 x10^3/uL (1-3.4); LYMPHS% (MANUAL) 19 % (22-44); MONOS#(MANUAL) 0.48 x10^3/uL (0.3-2.7); MONOS% (MANUAL) 25 % (2-9)
[2021-04-09 08:56] LABS: <PLATELET ESTIMATE> DECREASED; <PLT MORPHOLOGY> QNS FOR PLT MORPH; ANISOCYTOSIS 1+
[2021-04-09] MEDS: TBO-FILGRASTIM 480 MCG/0.8 ML SQ SCH (10:25)
[2021-04-09 13:07] VITALS: BP 114/76
[2021-04-09 20:11] VITALS: BP 136/87
[2021-04-10 01:07] VITALS: BP 127/71
[2021-04-10] MEDS: OMEPRAZOLE 20 MG CAPSULE.DR PO SCH (05:58)
[2021-04-10 06:24] VITALS: BP 121/77
[2021-04-10 07:06] LABS: MEAN CORPUSCULAR HEMOGLOBIN 30.8 pg (27.0-34.8); MEAN CORPUSCULAR HGB CONC 33.9 g/dL (32.4-35.8); RED BLOOD COUNT 3.51 x10^6/uL (3.82-5.3); RED CELL DISTRIBUTION WIDTH 18.7 % (9.6-15.2)
[2021-04-10 07:15] LABS: CHLORIDE 101 mmol/L (98-107)
[2021-04-10 07:24] LABS: ALANINE AMINOTRANSFERASE 25 U/L (12-78); ALBUMIN 2.5 g/dL (3.4-5.0); ALKALINE PHOSPHATASE 103 U/L (45-117); ANION GAP 5 mmol/L (5-15); CALCIUM 8.6 mg/dL (8.5-10.1); CREATININE 0.66 mg/dL (0.55-1.02); TOTAL PROTEIN 6.9 g/dL (6.4-8.2)
[2021-04-10 08:09] LABS: PLATELET COUNT 22 x10^3/uL (130-400)
[2021-04-10 08:19] LABS: BAND#(MANUAL) 0.81 x10^3/uL; BANDS%(MANUAL) 9 % (0-7); LYMPH#(MANUAL) 0.18 x10^3/uL (1-3.4); LYMPHS% (MANUAL) 2 % (22-44); MONOS#(MANUAL) 0.54 x10^3/uL (0.3-2.7); MONOS% (MANUAL) 6 % (2-9); MYELOCYTES# (MANUAL) 0.09 x10^3/uL (0-0); MYELOCYTES% (MANUAL) 1 % (0-0); SEG#(MANUAL) 7.38 x10^3/uL (1.8-6.8); SEGS% (MANUAL) 82 % (42-75)
[2021-04-10 08:20] LABS: <PLATELET ESTIMATE> DECREASED; <PLT MORPHOLOGY> NORMAL PLT MORPH; ANISOCYTOSIS 1+; TOXIC GRAN 1+
[2021-04-10] MEDS: ACYCLOVIR 200 MG CAPSULE PO SCH (08:46)
[2021-04-10] MEDS: SULFAMETH./TRIMETHOPRIM DS 800MG/160MG TABLET PO SCH (08:47)
[2021-04-10] MEDS: SENNOSIDES 8.6 MG TABLET PO SCH (08:56)
[2021-04-10] MEDS: TBO-FILGRASTIM 480 MCG/0.8 ML SQ SCH (09:00)
[2021-04-10] MEDS ORDERED: OMEP-110 PO (10:04)
[2021-04-10] MEDS ORDERED: PRED20TA PO (10:04)
== END 2021-04-10 13:03 | disposition home or self-care (01) | DRG 840 ==
LOC: ED 17:55 → EDIP 18:39 → 4NW 20:15
PROVIDERS: ADMIT Internal Medicine; ATTEND Family Medicine
PROC: 30233R1 Transfusion of Nonautologous Platelets into Peripheral Vein, Percutaneous Approach (ICD-10-PCS; 2021-03-14)
PROC: 30233N1 Transfusion of Nonautologous Red Blood Cells into Peripheral Vein, Percutaneous Approach (ICD-10-PCS; principal; 2021-03-23)
PROC: 02HV33Z Insertion of Infusion Device into Superior Vena Cava, Percutaneous Approach (ICD-10-PCS; 2021-03-27)
PROC: B5181ZA Fluoroscopy of Superior Vena Cava using Low Osmolar Contrast, Guidance (ICD-10-PCS; 2021-03-27)
PROC: B548ZZA Ultrasonography of Superior Vena Cava, Guidance (ICD-10-PCS; 2021-03-27)
DX: C83.30 Diffuse large B-cell lymphoma, unspecified site (principal); E43 Unspecified severe protein-calorie malnutrition; D69.3 Immune thrombocytopenic purpura; D61.818 Other pancytopenia; F19.10 Other psychoactive substance abuse, uncomplicated; R04.0 Epistaxis; Z66 Do not resuscitate; E80.4 Gilbert syndrome; D64.9 Anemia, unspecified; T45.1X5A Adverse effect of antineoplastic and immunosuppressive drugs, initial encounter; Y92.89 Other specified places as the place of occurrence of the external cause; Z85.828 Personal history of other malignant neoplasm of skin; Z87.891 Personal history of nicotine dependence; Z68.23 Body mass index [BMI] 23.0-23.9, adult
CPT/HCPCS: 36415; 36430; 36573; 71046; 80048; 80053; 80074; 82040; 83615; 83735; 84550; 85014; 85018; 85025; 85049; 85384; 85610; 85730; 86038; 86850; 86900; 86923; 96374; 96375; G0378; J1100; J1561; J1569; J2405; J9070; J9181; C1751; J1200; J1447; J1626; J2796; J2920; J2930; J7040; J7050; J7512; J9312; J9370; P9035; P9037; P9040; P9052; Q0163

== ENCOUNTER 2021-04-19 12:00 | Observation (INO) | payer MEDICARE ==
[~2021-04-19] VITALS: Ht 154.9 cm; Wt 58.0 kg
[2021-04-20 12:36] VITALS: BP 116/75
== END 2021-04-20 18:05 | disposition home or self-care (01) ==
LOC: ED 12:10 → EDIP 13:59 → INTOOBSV 13:59 → 4NW 17:00
PROVIDERS: ADMIT Internal Medicine; ATTEND Internal Medicine
DX: G92 Toxic encephalopathy (principal); I21.4 Non-ST elevation (NSTEMI) myocardial infarction; D69.6 Thrombocytopenia, unspecified; K21.9 Gastro-esophageal reflux disease without esophagitis; C85.90 Non-Hodgkin lymphoma, unspecified, unspecified site; J98.11 Atelectasis; R79.89 Other specified abnormal findings of blood chemistry; Z87.891 Personal history of nicotine dependence; Z79.899 Other long term (current) drug therapy
CPT/HCPCS: 36415; 70450; 70553; 71045; 80053; 80329; 81001; 82140; 84484; 85025; 87086; 93005; 95819; 96365; 99285; A9575; G0378; J0696; J7512